=== PATIENT | male | born 1980 | race Caucasian/White ===

== ENCOUNTER 2019-11-22 16:25 | Emergency (ER) | payer BC ==
--- NOTE | 2019-11-22 17:07 | ER Document Report ---
ED Medical Screen (RME) - General Chief Complaint: Chest Pain Stated Complaint: CHEST PAIN Time Seen by Provider: 11/22/19 16:44 Primary Care Provider: CHRISTINA HERMOSILLO MD [Primary Care Provider] - Follow up as needed Mode of Arrival: Ambulatory Information source: Patient Notes: Otherwise healthy 39-year-old male presenting to the emergency department chief complaint of chest pain. Patient reports onset of chest pain at about 1230 this afternoon that radiates down his left arm. He states the pain feels like a cramping/squeezing pain. He states the pain goes to his left arm and feels like there is a numbness and tingling in his left arm. He has never had symptoms like this before. He does report he has a stressful job but states he has not been overly stressed today. He denies any cardiac history. He did not have nausea, vomiting or shortness of breath with this pain. The pain is still currently there. Heart sounds S1-S2 present, normal rate, normal rhythm. Lung sounds clear and equal bilaterally. EKG was performed prior to triage, shows a sinus rhythm, rate of 80, QTc 406, normal intervals, normal axis, no ST segment elevations or depressions to suggest ischemia. I have greeted and performed a rapid initial assessment of this patient. A comprehensive ED assessment and evaluation of the patient, analysis of test results and completion of the medical decision making process will be conducted by additional ED providers. I have specifically instructed the patient or family members with the patient to immediately return to any nursing staff should anything change in the patient's condition or with their chief complaint. - Related Data Allergies/Adverse Reactions: Penicillins Allergy (Verified 11/22/19 16:58) Physical Exam - Vital signs Vitals: Temp Pulse BP Pulse Ox 98.6 F 102 H 153/90 H 96 11/22/19 16:45 11/22/19 16:45 11/22/19 16:45 11/22/19 16:45 Course - Vital Signs Vital signs: Temp Pulse Resp BP Pulse Ox 98.6 F 102 H 153/90 H 96 11/22/19 16:45 11/22/19 16:45 11/22/19 16:45 11/22/19 16:45 Doctor's Discharge - Discharge Referrals: CHRISTINA HERMOSILLO MD [Primary Care Provider] - Follow up as needed
--- NOTE | 2019-11-22 17:32 | RADIOLOGY REPORT (SQ) ---
EXAM DESCRIPTION: CHEST 2 VIEWS IMAGES COMPLETED DATE/TIME: 11/22/2019 5:23 pm REASON FOR STUDY: chest pain COMPARISON: None. EXAM PARAMETERS: NUMBER OF VIEWS: two views TECHNIQUE: Digital Frontal and Lateral radiographic views of the chest acquired. RADIATION DOSE: NA LIMITATIONS: none FINDINGS: LUNGS AND PLEURA: No opacities, masses or pneumothorax. No pleural effusion. MEDIASTINUM AND HILAR STRUCTURES: No masses or contour abnormalities. HEART AND VASCULAR STRUCTURES: Heart normal size. No evidence for failure. BONES: No acute findings. HARDWARE: None in the chest. OTHER: No other significant finding. IMPRESSION: NO ACUTE RADIOGRAPHIC FINDING IN THE CHEST. TECHNICAL DOCUMENTATION: JOB ID: [id number] 2010 [employer]- All Rights Reserved Reading location - IP/workstation name: [email or web address]
[2019-11-22 17:37] LABS: ABSOLUTE EOSINOPHILS # (AUTO) 0.1 10^3/uL (0.0-0.6); ABSOLUTE LYMPHOCYTES (AUTO) 2.3 10^3/uL (0.5-4.7); ABSOLUTE MONOCYTES (AUTO) 0.6 10^3/uL (0.1-1.4); BASOPHILS % (AUTO) 0.3 % (0-2); EOSINOPHILS % (AUTO) 0.8 % (0-6); HEMATOCRIT 43.4 % (37.9-51.0); MEAN CORPUSCULAR HGB CONC 34.5 g/dL (32.0-36.0); MEAN CORPUSCULAR VOLUME 87 fl (80-97); MONOCYTES % (AUTO) 8.6 % (3-13); PLATELET COUNT 208 10^3/uL (150-450); RED BLOOD COUNT 4.98 10^6/uL (4.35-5.55); RED CELL DISTRIBUTION WIDTH 13.5 % (11.5-14.0); SEGMENTED NEUTROPHILS % (AUTO) 57.3 % (42-78); TOTAL CELLS COUNTED % (AUTO) 100 %
[2019-11-22 17:55] LABS: ALBUMIN 4.7 g/dL (3.5-5.0); ALKALINE PHOSPHATASE 52 U/L (38-126); ANION GAP 12 (5-19); ASPARTATE AMINO TRANSFERASE 25 U/L (17-59); BILIRUBIN,DIRECT 0.2 mg/dL (0.0-0.4); BILIRUBIN,TOTAL 0.7 mg/dL (0.2-1.3); BLOOD UREA NITROGEN 12 mg/dL (7-20); CALCIUM 9.4 mg/dL (8.4-10.2); CARBON DIOXIDE 24 mmol/L (22-30); CHLORIDE 102 mmol/L (98-107); GLUCOSE 95 mg/dL (75-110); TOTAL PROTEIN 7.6 g/dL (6.3-8.2)
--- NOTE | 2019-11-22 20:57 | EKG REPORT ---
SEVERITY:- NORMAL ECG - SINUS RHYTHM : Confirmed by: Coleman Paul MD 22-Nov-2019 20:56:11
--- NOTE | 2019-11-22 22:05 | ER Document Report ---
ED Cardiac - General Chief Complaint: Chest Pain > 30 Stated Complaint: CHEST PAIN Time Seen by Provider: 11/22/19 16:44 Primary Care Provider: CHRISTINA HERMOSILLO MD [Primary Care Provider] - Follow up as needed JOHN PAUL TURNER MD [ACTIVE STAFF] - 11/24/19 Mode of Arrival: Ambulatory Notes: Patient is a 39-year-old male who comes emergency department for chief complaint of chest pain. He states that about 1230 he felt a sensation where he had discomfort in the left side of his chest which felt like a cramping or squeezing pain, he states the pain went into his left arm and he felt tingling in his arm as well. Patient states he became very concerned because of this and he came in for evaluation. Patient does not have any current symptoms and has no current complaints. Patient denies nausea, vomiting, abdominal pain, shortness of breath, fever/chills, cough. Patient denies smoking, alcohol, recreational drugs. Patient denies personal family history of [place]. - Related Data Allergies/Adverse Reactions: Penicillins Allergy (Verified 11/22/19 16:58) Past Medical History - General Information source: Patient - Social History Smoking Status: Never Smoker Chew tobacco use (# tins/day): No Frequency of alcohol use: None Drug Abuse: None Lives with: Family Family History: Reviewed & Not Pertinent Patient has homicidal ideation: No - Immunizations Hx Diphtheria, Pertussis, Tetanus Vaccination: Yes Review of Systems - Review of Systems Constitutional: No symptoms reported EENT: No symptoms reported Cardiovascular: See HPI Respiratory: No symptoms reported Gastrointestinal: No symptoms reported Genitourinary: No symptoms reported Male Genitourinary: No symptoms reported Musculoskeletal: No symptoms reported Skin: No symptoms reported Hematologic/Lymphatic: No symptoms reported Neurological/Psychological: No symptoms reported Physical Exam - Vital signs Vitals: Temp Pulse BP Pulse Ox 98.6 F 102 H 153/90 H 96 11/22/19 16:45 11/22/19 16:45 11/22/19 16:45 11/22/19 16:45 - Notes Notes: GENERAL: Alert, interacts well. No acute distress. HEAD: Normocephalic, atraumatic. EYES: Pupils equal, round, and reactive to light. Extraocular movements intact. ENT: Oral mucosa moist, tongue midline. Oropharynx unremarkable. Airway patent. NECK: Full range of motion. Supple. Trachea midline. No lymphadenopathy. LUNGS: Clear to auscultation bilaterally, no wheezes, rales, or rhonchi. No respiratory distress. Non-tender chest wall. HEART: Regular rate and rhythm. No murmur ABDOMEN: Soft, non-tender. Non-distended. Bowel sounds present in all 4 quadrants. GENITOURINARY: Deferred EXTREMITIES: Moves all 4 extremities spontaneously. No edema, normal radial and dorsalis pedis pulses bilaterally. No cyanosis. BACK: no cervical, thoracic, lumbar midline tenderness. No saddle anesthesia, normal distal neurovascular exam. Moves all extremities in full range of motion. NEUROLOGICAL: Alert and oriented x3. Normal speech. Cranial nerves II through XII grossly intact. Strength 5/5 in all extremities. PSYCH: Normal affect, normal mood. SKIN: Warm, dry, normal turgor. No rashes or lesions noted. Course - Re-evaluation Re-evalutation: On my evaluation patient smiling, well-appearing, no current complaints. Physical exam unremarkable. Patient is mildly hypertensive but otherwise his work-up is unremarkable. CBC, chemistry, delta troponins, EKG, chest x-ray without any acute findings. Patient with PERC negative evaluation. Heart score is less than 3. I discussed details with patient at length, patient states great satisfaction, he states that he will follow-up closely with cardiology, I discussed return precautions. Patient states appreciation and agreement. Stable and well-appearing at time of discharge. - Vital Signs Vital signs: Temp Pulse Resp BP Pulse Ox 97.8 F 83 18 150/101 H 99 11/22/19 22:21 11/22/19 22:21 11/22/19 22:21 11/22/19 22:21 11/22/19 22:21 - Laboratory Result Diagrams: 11/22/19 17:14 11/22/19 17:14 - EKG Interpretation by Me Additional EKG results interpreted by me: EKG shows sinus rhythm at a rate of 80, QTC of 406, normal axis, no T wave inversions or systemic changes in consecutive leads, machine reads as normal. Discharge - Discharge Clinical Impression: Chest pain of uncertain etiology Condition: Stable Disposition: HOME, SELF-CARE Additional Instructions: Your work-up today is negative including EKG, chest x-ray, and laboratory work- up. The exact cause of your pain/symptoms is not certain at this time. Please follow-up with the cardiology referral and/or your primary care closely as directed for additional evaluation. Your blood pressure was borderline this evening and also will need to be rechecked. Return if you worsen including return/severe worsening pain, vomiting, passing out, difficulty breathing, or any other concerning symptoms. Referrals: CHRISTINA HERMOSILLO MD [Primary Care Provider] - Follow up as needed JOHN PAUL TURNER MD [ACTIVE STAFF] - 11/24/19
[2019-11-22 22:26] VITALS: BP 150/101
== END 2019-11-22 22:27 | disposition home or self-care (01) ==
LOC: ER 16:25
DX: R07.9 Chest pain, unspecified (principal); R20.2 Paresthesia of skin; I10 Essential (primary) hypertension; Z88.0 Allergy status to penicillin
CPT/HCPCS: 36415; 71046; 80053; 84484; 85025; 93005; 93010; 99285